=== PATIENT | male | born 1995 | race Hispanic/Latino ===

== ENCOUNTER 2018-09-07 12:50 | Emergency (ER) | payer MEDICAID, OTHER | END 2018-09-07 13:20 | disposition home or self-care (01) | LOC: EDH 12:50 | DX: B86 Scabies (principal) | CPT/HCPCS: 99282 ==

== ENCOUNTER 2020-01-23 13:58 | Emergency (ER) | payer SELFPAY | END 2020-01-23 16:42 | disposition home or self-care (01) | LOC: EDH 13:58 | DX: K59.00 Constipation, unspecified (principal); R11.0 Nausea ==

== ENCOUNTER 2020-12-12 20:33 | Emergency (ER) | payer OTHER, SELFPAY ==
[2020-12-12 21:26] LABS: BASOPHILS % (AUTO) 0.7 % (0.0-5.0); EOSINOPHILS % (AUTO) 1.4 % (0.0-8.0); HEMATOCRIT 44.1 % (42-54); LYMPHOCYTES % (AUTO) 31.9 % (21.0-51.0); MEAN CORPUSCULAR HEMOGLOBIN 29.3 pg (27.0-33.0); MEAN CORPUSCULAR HGB CONC 33.6 g/dL (32.0-36.0); MEAN CORPUSCULAR VOLUME 87.3 fL (79-99); MONOCYTES % (AUTO) 16.7 % (3.0-13.0); NEUTROPHILS % (AUTO) 49.1 % (40.0-77.0); PLATELET COUNT (AUTO) 195 K/uL (130-400); RED BLOOD CELL COUNT(AUTO) 5.05 MIL/uL (4.50-6.20); RED CELL DISTRIBUTION WIDTH 12.4 % (11.0-15.5); WHITE BLOOD COUNT (AUTO) 4.3 K/uL (4.8-10.8)
[2020-12-12 21:37] LABS: POTASSIUM 3.9 mmol/L (3.5-5.1)
[2020-12-12 21:41] LABS: ALBUMIN 4.1 g/dL (3.5-5.0); BILIRUBIN,TOTAL 0.3 mg/dL (0.2-1.0); TOTAL PROTEIN, SERUM 7.4 g/dL (6.0-8.3)
[2020-12-12 21:50] LABS: BAND NEUTROPHILS % (MANUAL) 7 % (0-2); LYMPHOCYTES % (MANUAL) 33 % (22-44); MAN.DIFF COMMENT-IMPRESSION MANUAL DIFFERENTIAL; MONOCYTES % (MANUAL) 14 % (2-9); PLATELET MORPHOLOGY COMMENT ADEQUATE; REACTIVE LYMPHOCYTES 1 % (0-0); SEGMENTED NEUTROPHILS % 45 % (40-70)
== END 2020-12-12 22:04 | disposition home or self-care (01) ==
LOC: EDH 20:33
DX: U07.1 COVID-19 (principal)
CPT/HCPCS: 36415; 71045; 80053; 85025; 87426; 87804